=== PATIENT | female | born 1955 | race Two or more races ===

== ENCOUNTER 2022-07-21 09:29 | Outpatient (CLI) | payer OTHER | END 2022-07-21 09:41 | disposition home or self-care (01) | LOC: SONOGRAMA 09:29 | PROVIDERS: ATTEND Obstetrics & Gynecology Gynecology | DX: N84.0 Polyp of corpus uteri (principal); D25.0 Submucous leiomyoma of uterus; R93.89 Abnormal findings on diagnostic imaging of other specified body structures ==